=== PATIENT | male | born 1955 | race Caucasian/White ===

== ENCOUNTER 2018-05-07 18:47 | Emergency (ER) | payer MEDICAID ==
[~2018-05-07] VITALS: Ht 190.5 cm; Wt 70.8 kg
[~2018-05-07 18:47] MED LIST: BENZ1TAB2 PO; DICL50TA4 PO; HAL5T PO; TRAM-297 PO; TRAZ100T2 PO
[2018-05-07 18:58] VITALS: BP 142/85
[2018-05-07] MEDS ORDERED: LIDOCAINE 2% (LOCAL ANESTH.) PF 5ml SDV ONE ×2 (20:06→20:07)
[2018-05-07] MEDS ORDERED: cefTRIAXone SOD 1,000 MG VL ONE (20:06)
[2018-05-07] MEDS ORDERED: TETANUS-DIPTH-ACEL PERTUSSIS 0.5ML SYRG IM ONE (20:15)
[2018-05-07] MEDS ORDERED: LIDOCAINE 2%HCL (LOCAL ANESTH.) INJ 10ml MDV IJ ONE (20:15)
[2018-05-07] MEDS ORDERED: cefTRIAXone SOD 1,000 MG VL IM ONE (20:15)
== END 2018-05-07 22:03 | disposition home or self-care (01) ==
LOC: ER 18:53
DX: S52.501A Unspecified fracture of the lower end of right radius, initial encounter for closed fracture (principal); S01.81XA Laceration without foreign body of other part of head, initial encounter; F17.210 Nicotine dependence, cigarettes, uncomplicated; Z88.6 Allergy status to analgesic agent; Z79.891 Long term (current) use of opiate analgesic; Z79.899 Other long term (current) drug therapy; V03.99XA Pedestrian with other conveyance injured in collision with car, pick-up truck or van, unspecified whether traffic or nontraffic accident, initial encounter; Y93.89 Activity, other specified; Y92.89 Other specified places as the place of occurrence of the external cause; Y99.8 Other external cause status
CPT/HCPCS: 12013; 29125; 70450; 70486; 73110; 73562; 90471; 90715; 96372; 99284; J0696; J2001

== ENCOUNTER 2018-05-10 11:17 | Emergency (ER) | payer MEDICAID ==
[~2018-05-10] VITALS: Ht 190.5 cm; Wt 71.7 kg
[2018-05-10 11:36] VITALS: BP 138/65
== END 2018-05-10 14:46 | disposition left against medical advice (07) ==
LOC: ER 11:24
DX: Z48.01 Encounter for change or removal of surgical wound dressing (principal); Z53.21 Procedure and treatment not carried out due to patient leaving prior to being seen by health care provider

== ENCOUNTER 2020-08-04 08:44 | Emergency (ER) | payer MEDICAID ==
[~2020-08-04] VITALS: Ht 190.5 cm; Wt 68.0 kg
[~2020-08-04 08:44] MED LIST changes: -TRAZ100T2 PO; +TRAZ100T3 PO
[2020-08-04] MEDS ORDERED: MORPHINE SULFATE 4 MG/ML SYR/VIAL IV ONE (09:00)
[2020-08-04] MEDS ORDERED: SODIUM CHLORIDE 0.9% 1,000 ML IVB ONE (09:00)
[2020-08-04] MEDS ORDERED: ONDANSETRON HCL 4 MG/2 ML VIAL IV ONE (09:00)
[2020-08-04 09:27] VITALS: BP 132/69
[2020-08-04 09:37] LABS: Basophils # (auto) 0 10 ^3/uL (0-0.2); Basophils % (auto) 0.4 % (0.0-2.0); Eosinophils # (auto) 0.1 10 ^3/uL (0-0.8); Eosinophils % (auto) 0.8 % (0.0-7.0); Hematocrit 47.1 % (41.0-53.0); Hemoglobin 16.1 g/dL (13.5-17.5); Lymphocytes % (auto) 25.8 % (10.0-50.0); Mean Corpuscular Hemoglobin 33.8 pg (28.0-32.0); Mean Corpuscular Hgb Conc. 34.2 g/dL (32.0-36.0); Monocytes # (auto) 0.8 10 ^3/uL (0-1.3); Monocytes % (auto) 10.7 % (0.0-12.0); Neutrophils # (auto) 4.9 10 ^3/uL (1.6-8.6); Neutrophils % (auto) 62.3 % (37.0-80.0); Nucleated Red Blood Cells % 0.1 %; Platelet Count (auto) 287 10^3/uL (140-450); Red Blood Cells 4.75 10^6/uL (4.5-5.90); Red Cell Distribution Width 13.4 % (11.8-14.3); White Blood Cell 7.8 10^3/uL (4.4-10.8)
[2020-08-04 09:52] LABS: Urine Bacteria NONE SEEN /hpf (None Seen); Urine Blood 2+ /uL (Negative); Urine Hyaline Cast MANY /lpf (0 - 2); Urine Mucus FEW (None Seen); Urine Specific Gravity 1.018 (1.001-1.035); Urine WBC 9 /hpf (0 - 3)
[2020-08-04 09:53] LABS: Albumin 4.3 g/dL (3.4-5.0); Anion Gap 11 (5-15); Blood Urea Nitrogen 12 mg/dL (7-18); Carbon Dioxide 24 mmol/L (21-32); Chloride 101 mmol/L (98-107); Glucose 166 mg/dL (74-106); Potassium 4.2 mmol/L (3.5-5.1); Sodium 136 mmol/L (136-145)
[2020-08-04 09:59] LABS: Alanine Aminotransferase 27 U/L (16-61); Alkaline Phosphatase 90 U/L (45-117); Aspartate Aminotransferase 31 U/L (15-37); BUN/Creatinine Ratio 7.6; Bilirubin, Total 1.2 mg/dL (0.2-1.0); GFR African American 57 mL/min; GFR Non-African American 47 mL/min; Total Protein 8.2 g/dL (6.4-8.2)
[2020-08-04] MEDS ORDERED: ASPI1TAB37 PO (10:29)
[2020-08-04] MEDS ORDERED: IBUP800T26 PO (10:29)
[2020-08-04] MEDS ORDERED: DONE5TAB80 PO (10:29)
[2020-08-04] MEDS ORDERED: TIZA2TAB3 PO (10:29)
[2020-08-04] MEDS ORDERED: HALO5TAB PO (10:29)
[2020-08-04] MEDS ORDERED: CETI-120 PO (10:29)
[2020-08-04] MEDS ORDERED: DICL1GEL50 TOP (10:29)
== END 2020-08-04 11:29 | disposition home or self-care (01) ==
LOC: ER 08:44
DX: N39.0 Urinary tract infection, site not specified (principal); R19.7 Diarrhea, unspecified; E78.00 Pure hypercholesterolemia, unspecified; F41.9 Anxiety disorder, unspecified; F32.9 Major depressive disorder, single episode, unspecified; F20.9 Schizophrenia, unspecified; E78.5 Hyperlipidemia, unspecified; F17.210 Nicotine dependence, cigarettes, uncomplicated; Z88.6 Allergy status to analgesic agent; Z79.82 Long term (current) use of aspirin; Z79.899 Other long term (current) drug therapy
CPT/HCPCS: 36415; 74176; 80053; 81001; 84484; 85025; 93005; 96361; 96374; 96375; 99285; J2270; J2405; J7030

== ENCOUNTER 2020-08-20 15:03 | Emergency (ER) | payer MEDICAID ==
[~2020-08-20] VITALS: Ht 182.9 cm; Wt 63.5 kg
[~2020-08-20 15:03] MED LIST changes: +ASPI1TAB37 PO; +CETI-120 PO; +DICL1GEL50 TOP; +DONE5TAB80 PO; +HALO5TAB PO; +IBUP800T26 PO; +TIZA2TAB3 PO
[2020-08-20 15:42] LABS: Basophils # (auto) 0 10 ^3/uL (0-0.2); Basophils % (auto) 0.6 % (0.0-2.0); Eosinophils # (auto) 0 10 ^3/uL (0-0.8); Eosinophils % (auto) 0.8 % (0.0-7.0); Hemoglobin 13.3 g/dL (13.5-17.5); Lymphocytes # (auto) 1.6 10 ^3/uL (0.4-5.4); Lymphocytes % (auto) 32.8 % (10.0-50.0); Mean Corpuscular Hemoglobin 33.9 pg (28.0-32.0); Mean Corpuscular Hgb Conc. 34.2 g/dL (32.0-36.0); Mean Corpuscular Volume 99.2 fL (80.0-100.0); Monocytes # (auto) 0.5 10 ^3/uL (0-1.3); Monocytes % (auto) 9.8 % (0.0-12.0); Neutrophils # (auto) 2.7 10 ^3/uL (1.6-8.6); Nucleated Red Blood Cells % 0.1 %; Platelet Count (auto) 286 10^3/uL (140-450); Red Blood Cells 3.93 10^6/uL (4.5-5.90); Red Cell Distribution Width 13.2 % (11.8-14.3); White Blood Cell 4.9 10^3/uL (4.4-10.8)
[2020-08-20 15:57] LABS: INR 1.08 (0.9-1.15); Partial Thromboplastin Time 29.1 sec (23.0-31.2)
[2020-08-20 15:58] LABS: Albumin 3.2 g/dL (3.4-5.0); Anion Gap 5 (5-15); Blood Urea Nitrogen 10 mg/dL (7-18); Carbon Dioxide 26 mmol/L (21-32); Chloride 110 mmol/L (98-107); Glucose 92 mg/dL (74-106); Magnesium 2.1 mg/dL (1.6-2.6); Potassium 4.1 mmol/L (3.5-5.1); Sodium 141 mmol/L (136-145)
[2020-08-20 16:02] LABS: Alanine Aminotransferase 22 U/L (16-61); Alkaline Phosphatase 70 U/L (45-117); Aspartate Aminotransferase 19 U/L (15-37); BUN/Creatinine Ratio 7.9; Bilirubin, Total 0.6 mg/dL (0.2-1.0); GFR African American 74 mL/min; GFR Non-African American 61 mL/min; Total Protein 6.4 g/dL (6.4-8.2)
[2020-08-20] MEDS ORDERED: HALOPERIDOL 5 MG TAB PO ONE (17:45)
[2020-08-20] MEDS ORDERED: DONEPEZIL HYDROCHLORIDE 5 MG TAB PO ONE (18:00)
[2020-08-20] MEDS ORDERED: BENZTROPINE MESY 0.5 MG TAB PO ONE (18:15)
[2020-08-20] MEDS ORDERED: LORATADINE 10 MG TAB PO ONE (18:15)
[2020-08-20 19:51] VITALS: BP 100/60
== END 2020-08-20 19:44 | disposition home or self-care (01) ==
LOC: EDBD 15:03 → ER 15:03
DX: S01.01XA Laceration without foreign body of scalp, initial encounter (principal); R55 Syncope and collapse; F41.9 Anxiety disorder, unspecified; F32.9 Major depressive disorder, single episode, unspecified; E78.5 Hyperlipidemia, unspecified; F20.9 Schizophrenia, unspecified; F17.210 Nicotine dependence, cigarettes, uncomplicated; W18.39XA Other fall on same level, initial encounter; Y93.89 Activity, other specified; Y92.89 Other specified places as the place of occurrence of the external cause; Y99.8 Other external cause status
CPT/HCPCS: 12001; 36415; 70450; 71045; 80053; 83735; 83880; 84484; 85025; 85610; 85730; 93005

== ENCOUNTER 2020-08-29 13:55 | Emergency (ER) | payer MEDICAID ==
[~2020-08-29] VITALS: Ht 190.5 cm; Wt 57.6 kg
[~2020-08-29 13:55] MED LIST changes: -TIZA2TAB3 PO; +TIZA2TAB4 PO
[2020-08-29 15:10] VITALS: BP 103/71
== END 2020-08-29 15:18 | disposition home or self-care (01) ==
LOC: ER 13:55
DX: S01.01XD Laceration without foreign body of scalp, subsequent encounter (principal); E78.5 Hyperlipidemia, unspecified; F17.210 Nicotine dependence, cigarettes, uncomplicated; Z79.82 Long term (current) use of aspirin; Z79.899 Other long term (current) drug therapy; Z88.6 Allergy status to analgesic agent; X58.XXXD Exposure to other specified factors, subsequent encounter